=== PATIENT | male | born 1955 | race African-American/Black ===

== ENCOUNTER 2022-06-07 07:24 | Emergency (ER) | payer BC, MEDICARE ==
[~2022-06-07] VITALS: Ht 190.5 cm; Wt 95.5 kg
[~2022-06-07 07:24] MED LIST: HYDR25TA2 PO; METF-1211 PO; UNK HTN MED PO
[2022-06-07] MEDS ORDERED: TAMSULOSIN HCL 0.4 MG CAPSULE PO ONE (08:00)
[2022-06-07 09:01] LABS: APPEARANCE,URINE CLEAR (CLEAR); BILIRUBIN,URINE NEGATIVE (NEGATIVE); GLUCOSE, URINE (UA) NEGATIVE (NEGATIVE); KETONES,URINE NEGATIVE (NEGATIVE); LEUKOCYTE ESTERASE ,URINE NEGATIVE (NEGATIVE); NITRATE,URINE NEGATIVE (NEGATIVE); OCCULT BLOOD,URINE MODERATE (NEGATIVE); PROTEIN,URINE NEGATIVE (NEGATIVE); SPECIFIC GRAVITIY, URINE 1.006 (1.003-1.030); UROBILINOGEN,URINE <=1.0 mg/dL (<=1.0)
[2022-06-07 09:20] LABS: BACTERIA,URINE None Seen /HPF (None Seen); WBC,URINE None Seen /HPF (0-5)
[2022-06-07 09:39] VITALS: BP 142/80
[2022-06-07] MEDS ORDERED: TAMS-13 PO (09:40)
== END 2022-06-07 09:43 | disposition home or self-care (01) ==
LOC: EMS 07:27
DX: R33.9 Retention of urine, unspecified (principal); E11.9 Type 2 diabetes mellitus without complications; I10 Essential (primary) hypertension; Z98.890 Other specified postprocedural states
CPT/HCPCS: 51702; 81001; 99284; Z7502; Z7610

== ENCOUNTER 2023-02-08 06:42 | Emergency (ER) | payer MEDICARE ==
[~2023-02-08] VITALS: Ht 190.5 cm; Wt 93.2 kg
[~2023-02-08 06:42] MED LIST changes: +TAMS-13 PO
[2023-02-08 06:44] VITALS: TEMP 98.1
[2023-02-08 08:16] LABS: APPEARANCE,URINE CLEAR (CLEAR); BILIRUBIN,URINE NEGATIVE (NEGATIVE); GLUCOSE, URINE (UA) NEGATIVE (NEGATIVE); KETONES,URINE NEGATIVE (NEGATIVE); LEUKOCYTE ESTERASE ,URINE NEGATIVE (NEGATIVE); NITRATE,URINE NEGATIVE (NEGATIVE); OCCULT BLOOD,URINE NEGATIVE (NEGATIVE); PROTEIN,URINE NEGATIVE (NEGATIVE); SPECIFIC GRAVITIY, URINE 1.007 (1.003-1.030); UROBILINOGEN,URINE <=1.0 mg/dL (<=1.0)
[2023-02-08 08:17] LABS: BASOPHILS % (AUTO) 1.1 % (0.0-2.0); EOSINOPHILS % (AUTO) 8.2 % (1.0-6.0); HEMOGLOBIN 13.5 g/dL (13.5-17.5); LYMPHOCYTES # (AUTO) 1.8 K/uL (1.0-4.8); LYMPHOCYTES % (AUTO) 20.4 % (22.0-44.0); MEAN CORPUSCULAR HEMOGLOBIN 27.8 pg (26.0-34.0); MEAN CORPUSCULAR HGB CONC 34.7 G/dL (31.0-37.0); MEAN CORPUSCULAR VOLUME 80 fL (80-100); MONOCYTES # (AUTO) 0.9 K/uL (0.1-1.0); MONOCYTES % (AUTO) 10.9 % (2.0-9.0); NEUTROPHILS # (AUTO) 5.1 K/uL (1.8-7.7); NEUTROPHILS % (AUTO) 59.4 % (40.0-70.0); PLATELET COUNT (AUTO) 341 K/uL (150-450); RED BLOOD CELL COUNT(AUTO) 4.86 MIL/uL (4.50-5.90); RED CELL DISTRIBUTION WIDTH 15.8 % (11.5-14.5)
[2023-02-08 08:21] LABS: BACTERIA,URINE None Seen /HPF (None Seen); RBC,URINE None Seen /HPF (0-2); WBC,URINE None Seen /HPF (0-5)
[2023-02-08 08:25] LABS: ANION GAP 10 mmol/L (8-16); CALCIUM, TOTAL 8.8 mg/dL (8.8-10.5); CARBON DIOXIDE 25 mmol/L (22-29); CHLORIDE 106 mmol/L (98-107); CREATININE 0.85 mg/dL (0.60-1.30); GLOMERULAR FILTR. RATE CALC > 60 mL/min (>60); GLUCOSE,RANDOM 108 mg/dL (70-110); POTASSIUM 3.8 mmol/L (3.5-5.1); SODIUM SERUM 141 mmol/L (136-145)
[2023-02-08] MEDS ORDERED: CEPH-558 PO (08:37)
[2023-02-08 09:00] VITALS: BP 130/99; PULSE 97; RESP 18
== END 2023-02-08 09:29 | disposition home or self-care (01) ==
LOC: EMS 06:46
DX: R33.9 Retention of urine, unspecified (principal); E11.9 Type 2 diabetes mellitus without complications; I10 Essential (primary) hypertension; Z98.890 Other specified postprocedural states
CPT/HCPCS: 51702; 80048; 81001; 82962; 85025; 99284

== ENCOUNTER 2023-03-09 10:14 | Emergency (ER) | payer MEDICARE ==
[~2023-03-09] VITALS: Ht 190.5 cm; Wt 93.2 kg
[~2023-03-09 10:14] MED LIST changes: +CEPH-558 PO; -TAMS-13 PO; +TAMS0.4C34 PO
[2023-03-09 10:18] VITALS: TEMP 97.6
[2023-03-09 12:03] LABS: BASOPHILS % (AUTO) 1.4 % (0.0-2.0); EOSINOPHILS % (AUTO) 3.9 % (1.0-6.0); HEMOGLOBIN 13.6 g/dL (13.5-17.5); LYMPHOCYTES # (AUTO) 1.9 K/uL (1.0-4.8); LYMPHOCYTES % (AUTO) 21.6 % (22.0-44.0); MEAN CORPUSCULAR HEMOGLOBIN 27.9 pg (26.0-34.0); MEAN CORPUSCULAR HGB CONC 34.1 G/dL (31.0-37.0); MEAN CORPUSCULAR VOLUME 82 fL (80-100); MONOCYTES # (AUTO) 0.8 K/uL (0.1-1.0); MONOCYTES % (AUTO) 9.8 % (2.0-9.0); NEUTROPHILS # (AUTO) 5.5 K/uL (1.8-7.7); NEUTROPHILS % (AUTO) 63.3 % (40.0-70.0); PLATELET COUNT (AUTO) 328 K/uL (150-450); RED BLOOD CELL COUNT(AUTO) 4.89 MIL/uL (4.50-5.90); RED CELL DISTRIBUTION WIDTH 15.6 % (11.5-14.5); WHITE BLOOD COUNT (AUTO) 8.6 K/uL (4.5-11.0)
[2023-03-09 12:13] LABS: APPEARANCE,URINE CLEAR (CLEAR); BILIRUBIN,URINE NEGATIVE (NEGATIVE); COLOR,URINE LIGHT YELLOW (YELLOW); GLUCOSE, URINE (UA) NEGATIVE (NEGATIVE); KETONES,URINE NEGATIVE (NEGATIVE); LEUKOCYTE ESTERASE ,URINE NEGATIVE (NEGATIVE); NITRATE,URINE NEGATIVE (NEGATIVE); OCCULT BLOOD,URINE NEGATIVE (NEGATIVE); PROTEIN,URINE NEGATIVE (NEGATIVE); SPECIFIC GRAVITIY, URINE 1.009 (1.003-1.030); UROBILINOGEN,URINE <=1.0 mg/dL (<=1.0)
[2023-03-09 12:15] LABS: ANION GAP 9 mmol/L (8-16); CALCIUM, TOTAL 8.9 mg/dL (8.8-10.5); CARBON DIOXIDE 28 mmol/L (22-29); CHLORIDE 104 mmol/L (98-107); CREATININE 0.89 mg/dL (0.60-1.30); GLOMERULAR FILTR. RATE CALC > 60 mL/min (>60); GLUCOSE,RANDOM 108 mg/dL (70-110); POTASSIUM 4.2 mmol/L (3.5-5.1); SODIUM SERUM 141 mmol/L (136-145); UREA NITROGEN, BLOOD 8 mg/dL (7-18)
[2023-03-09 12:20] LABS: ALANINE AMINOTRANSFERASE 10 U/L (12-78); ALBUMIN 2.9 g/dL (3.4-5.0); ALKALINE PHOSPHATASE 85 U/L (46-116); ASPARTATE AMINOTRANSFERASE 12 U/L (15-37); BILIRUBIN,TOTAL 0.3 mg/dL (0.1-1.0); LIPASE 17 U/L (16-77); TOTAL PROTEIN, SERUM 6.5 g/dL (6.4-8.2)
[2023-03-09 12:21] LABS: TROPONIN I-HIGH SENSITIVITY 10 ng/L (<76)
[2023-03-09] MEDS ORDERED: TAMS-1 PO (13:24)
[2023-03-09 13:33] VITALS: BP 141/84; PULSE 84; RESP 18
== END 2023-03-09 13:53 | disposition home or self-care (01) ==
LOC: EMS 10:18
DX: R33.9 Retention of urine, unspecified (principal); E11.9 Type 2 diabetes mellitus without complications; I10 Essential (primary) hypertension; Z98.890 Other specified postprocedural states
CPT/HCPCS: 51702; 80053; 81003; 82962; 83690; 84484; 85025; 93005; 99284

== ENCOUNTER 2023-03-14 11:59 | Emergency (ER) | payer MEDICARE ==
[~2023-03-14] VITALS: Ht 190.5 cm; Wt 93.2 kg
[~2023-03-14 11:59] MED LIST changes: -CEPH-558 PO; +TAMS-1 PO
[2023-03-14] MEDS ORDERED: LISI40TA9 PO (12:25)
[2023-03-14] MEDS ORDERED: ATOR20TA65 PO (12:25)
[2023-03-14] MEDS ORDERED: ALBU18HF12 IH (12:27)
[2023-03-14] MEDS ORDERED: AMLO5TAB66 PO (12:27)
[2023-03-14 12:56] LABS: GLUCOMETER DEV NAME(LOC) ERT.5; GLUCOSE,POINT OF CARE 118 MG/DL (70-110)
[2023-03-14 13:31] VITALS: BP 111/65; PULSE 113; RESP 20; TEMP 98.5
== END 2023-03-14 13:42 | disposition home or self-care (01) ==
LOC: EMS 12:04
DX: R33.9 Retention of urine, unspecified (principal); Z46.6 Encounter for fitting and adjustment of urinary device; F32.A Depression, unspecified; I10 Essential (primary) hypertension; Z98.890 Other specified postprocedural states
CPT/HCPCS: 82962; 99282

== ENCOUNTER 2023-05-09 06:22 | Emergency (ER) | payer MEDICARE ==
[~2023-05-09] VITALS: Ht 190.5 cm; Wt 90.0 kg
[~2023-05-09 06:22] MED LIST changes: +ALBU18HF12 IH; +AMLO5TAB66 PO; +ATOR20TA65 PO; +LISI40TA9 PO; -TAMS0.4C34 PO; -UNK HTN MED PO
[2023-05-09 06:28] VITALS: TEMP 97.9
[2023-05-09 06:56] VITALS: BP 145/82; PULSE 88; RESP 14
[2023-05-09] MEDS ORDERED: TAMSULOSIN HCL 0.4 MG CAPSULE PO ONE (07:00)
== END 2023-05-09 07:42 | disposition home or self-care (01) ==
LOC: EMS 06:24
DX: R33.9 Retention of urine, unspecified (principal); E11.9 Type 2 diabetes mellitus without complications; I10 Essential (primary) hypertension; Z98.890 Other specified postprocedural states
CPT/HCPCS: 99283